=== PATIENT | female | born 1985 | race Caucasian/White ===

== ENCOUNTER 2018-04-14 21:44 | Emergency (ER) | payer MEDICAID ==
[~2018-04-14] VITALS: Ht 165.1 cm; Wt 97.6 kg
[2018-04-14 21:50] VITALS: BP 111/62
--- NOTE | 2018-04-14 22:00 | NUR ---
TO ER BED 5
[2018-04-14] MEDS ORDERED: ACETAMINOPHEN EXTRA STRENGTH 500 MG TAB PO ONE (22:05)
[2018-04-14] MEDS ORDERED: LIDOCAINE VISCOUS 2% 20 ML UDC PO ONE (22:05)
--- NOTE | 2018-04-14 22:09 | NUR ---
L&D NURSE AT BEDSIDE PERFORMING HEART TONES
--- NOTE | 2018-04-14 22:09 | NUR ---
PT BIB FAMILY C/O PAIN IN THROAT STARTING TODAY. PT STATED SHE HAS SEVERE 8/10 SORE PAIN IN THROAT THAT INCREASES WITH SWALLOWING AND TALKING. PT STATED SHE FEELS SOB, HAS DIFFICULTY TALKING AND HAS MUFFLED VOICE. RR SYMMETRICAL AND NON-LABORED, O2 SAT. AT 100 PERCENT ON RA. PT 20 WEEKS , . ER MD TO SEE PT. WILL CONTINUE TO MONITOR. MEDHX: NONE
--- NOTE | 2018-04-14 22:15 | NUR ---
PER L&D NURSE HEART TONE AT 150, ER INFORMED.
[2018-04-14 23:15] VITALS: BP 112/63
--- NOTE | 2018-04-14 23:15 | NUR ---
Patient discharged with v/s stable. Written and verbal after care instructions given and explained. Patient alert, oriented and verbalized understanding of instructions. Ambulatory with steady gait. All questions addressed prior to discharge. ID band removed. Patient advised to follow up with PMD. Rx of CLARITIN, TYLENOL, AND TAMIFLU given. Patient educated on indication of medication including possible reaction and side effects. Opportunity to ask questions provided and answered.
== END 2018-04-14 23:15 | disposition home or self-care (01) ==
LOC: MED 21:44
DX: O98.512 Other viral diseases complicating pregnancy, second trimester (principal); J10.1 Influenza due to other identified influenza virus with other respiratory manifestations; Z3A.20 20 weeks gestation of pregnancy
CPT/HCPCS: 36415; 87804; 99283

== ENCOUNTER 2019-11-11 22:56 | Emergency (ER) | payer MEDICAID, OTHER ==
[~2019-11-11] VITALS: Ht 165.1 cm; Wt 107.5 kg
[2019-11-11 23:01] VITALS: BP 125/78
--- NOTE | 2019-11-11 23:07 | NUR ---
PT AMBULATED TO BED 04 WITH STEADY GAIT.
--- NOTE | 2019-11-11 23:15 | NUR ---
33 Y/O FEMALE PRESENTS TO ER WITH C/O BILATERAL HAND TINGLING, AND RIGHT LOWER LEG TINGLING X 2 DAYS. 0/10 PAIN. PT HAS ROM IN BILATERAL HAND, AND RIGHT LEG. RADIAL, AND ULNAR, AND DORSALIS PEDIS PULSES BOTH PALPABLE AND REGULAR. PT STATES SHE WENT TO [place] AND HAD GASTRIC SLEEVE PLACED 10/28/19, AND SINCE HAS BEEN CONSTIPATED, AND UNABLE TO DRINK WATER REGURLARLY LIKE NORMAL. SHE ALSO C/O DIZZINESS, AND SURGICAL SITE BEGINNING TO LOOK INFECTED. DENIES INJURY/TRAUMA, N/V/D, FEVER, SOB. LMP 11/02/19. VSS, R/R EQUAL, AND UNLABORED. SIDE RAIL X1, BED IN LOW POSITION, WILL CONTINUE TO MONITOR. NKDA DENIES PMH
--- NOTE | 2019-11-11 23:16 | NUR ---
Dr. Pate examining patient.
[2019-11-11] MEDS ORDERED: NACL 0.9% 1,000 ML IV ONE (23:25)
[2019-11-11 23:47] LABS: HEMOGLOBIN 13.5 g/dL (12.0-16.0); MEAN CORPUSCULAR HEMOGLOBIN 30 pg (27-31); PLATELET COUNT (AUTO) 291 K/uL (140-450)
[2019-11-11 23:52] LABS: ALBUMIN 4.2 g/dL (3.4-5.0); ANION GAP 17.6 (8-16); BASOPHILS # (AUTO) 0.1 K/uL (0.00-0.22); BASOPHILS % (AUTO) 1.1 % (0.0-2.0); CARBON DIOXIDE 24.1 mmol/L (21-32); CREATININE 0.7 mg/dL (0.6-1.3); EOSINOPHILS # (AUTO) 0.2 K/uL (0-0.4); HEMATOCRIT 39.9 % (36-48); LYMPHOCYTES # (AUTO) 2.5 K/uL (2.5-16.5); LYMPHOCYTES % (AUTO) 34.4 % (20.5-51.1); MEAN CORPUSCULAR HGB CONC 34 g/dL (33-37); MEAN CORPUSCULAR VOLUME 87.7 fL (80-94); MONOCYTES # (AUTO) 0.6 K/uL (0.8-1.0); NEUTROPHILS # (AUTO) 3.8 K/uL (1.8-7.7); NEUTROPHILS % (AUTO) 52.5 % (42.2-75.2); RED BLOOD CELL COUNT(AUTO) 4.55 MIL/uL (4.20-5.40); TOTAL BILIRUBIN 0.4 mg/dL (0.0-1.0); WHITE BLOOD COUNT (AUTO) 7.1 K/uL (4.8-10.8)
[2019-11-11 23:55] LABS: POTASSIUM 2.7 mmol/L (3.5-5.1)
--- NOTE | 2019-11-11 23:57 | NUR ---
CRITICAL LAB VALUE REPORTED BY TANNER. POTASSIUM 2.7. ERMD MADE AWARE. NEW ORDERS GIVEN.
[2019-11-12] MEDS ORDERED: KCL 20 MEQ/WATER INJ PREMIX 100 ML IV ONE
[2019-11-12] MEDS ORDERED: POTASSIUM CHLORIDE 10 MEQ TABER PO ONE
--- NOTE | 2019-11-12 00:31 | NUR ---
POTASSIUM 20MEQ INFUSING, PT TOLERATING WELL. VSS, R/R EQUAL, AND UNLABORED. SIDE RAIL X1, WILL CONTINUE TO MONITOR.
[2019-11-12] MEDS ORDERED: NACL 0.9% 1,000 ML IV ONE (01:20)
--- NOTE | 2019-11-12 01:36 | NUR ---
PT RESTING IN BED. POTASSIUM STILL INFUSING, PT TOLERATING WELL. SIDE RAIL X1, BED IN LOW POSITION, WILL CONTINUE TO MONITOR. NKDA PMH: HIV
--- NOTE | 2019-11-12 02:21 | NUR ---
IV removed, catheter intact and site benign. Applied folded 4x4 gauze and tape to stop bleeding.
[2019-11-12 02:30] VITALS: BP 112/80
--- NOTE | 2019-11-12 02:30 | NUR ---
Patient discharged with v/s stable. Written and verbal after care instructions given and explained. Patient alert, oriented and verbalized understanding of instructions. Ambulatory with steady gait. All questions addressed prior to discharge. ID band removed. Patient advised to follow up with PMD. Rx of POTASSIUM CHLORIDE given. Patient educated on indication of medication including possible reaction and side effects. Opportunity to ask questions provided and answered.
== END 2019-11-12 02:30 | disposition home or self-care (01) ==
LOC: MED 22:56
DX: E87.6 Hypokalemia (principal); E86.0 Dehydration; R20.2 Paresthesia of skin
CPT/HCPCS: 36415; 80053; 83735; 85025; 96361; 96365; 96366; 99284; J3480; J7030

== ENCOUNTER 2020-08-09 10:11 | Emergency (ER) | payer OTHER ==
[~2020-08-09] VITALS: Ht 165.1 cm; Wt 81.6 kg
[2020-08-09 10:16] VITALS: BP 109/67
[2020-08-09] MEDS ORDERED: ACETAMINOPHEN 325 MG TAB PO ONE (10:25)
[2020-08-09] MEDS ORDERED: METH-1681 PO ×2 (11:25→11:55)
[2020-08-09 11:45] VITALS: BP 109/67
[2020-08-09 14:33] LABS: APPEARANCE,URINE CLEAR (CLEAR); BILIRUBIN,URINE 1+ (NEGATIVE); BLOOD, URINE NEGATIVE (NEGATIVE); COLOR,URINE DARK YELLOW (YELLOW); LEUKOCYTE ESTERASE ,URINE NEGATIVE (NEGATIVE); NITRITE, URINE NEGATIVE (NEGATIVE); PH,URINE 5.5 (5.0-9.0); UGLUCOSE NEGATIVE (NEGATIVE)
== END 2020-08-09 11:45 | disposition home or self-care (01) ==
LOC: MED 10:11
DX: R10.31 Right lower quadrant pain (principal); Z79.899 Other long term (current) drug therapy; Z98.890 Other specified postprocedural states
CPT/HCPCS: 76856; 81003; 81025; 99285

== ENCOUNTER 2020-08-28 12:27 | Inpatient (IN) | payer OTHER, SELFPAY ==
[~2020-08-28] VITALS: Ht 165.1 cm; Wt 80.7 kg
--- NOTE | 2020-08-28 07:50 | NUR ---
RECEIVED REPORT OVER THE PHONE FROM RAMONITA SAM IN ER, PT IN STABLE CONDITION.
[~2020-08-28 12:27] MED LIST: METH-1681 PO
[2020-08-28 12:47] VITALS: BP 99/68
--- NOTE | 2020-08-28 12:51 | NUR ---
PT TO AWAIT IN LOBBY
--- NOTE | 2020-08-28 13:39 | NUR ---
PA BEDSIDE EVALUATING PT
--- NOTE | 2020-08-28 13:50 | NUR ---
US BEDSIDE WITH PT
--- NOTE | 2020-08-28 13:51 | NUR ---
PT PROVIDED URINE CUP. PT UNABLE TO URINATE AT THE TIME, WATER PROVIDED. MADE AWARE
--- NOTE | 2020-08-28 13:59 | NUR ---
34 FEMALE WITH C/O RT RIB PAIN X1 WEEK. PT STATES INTERMITTENT 8/10 PAIN RADAITING TO BACK. TENDER TO TOUCH. "FEELS LIKE MY RIB IS SWELLING" WITH NAUSEA. DENIES ANY RECENT TRAUMA OR INJURY. PT STATES SHE EXPERINCES "RANDOME FLARE UPS WHICH CAUSE FOR THE PAIN." DENIES THAT ANY MOVEMENTS CAUSE FOR THE FLARE UPS. PT "STATES SHE DRINKS 3 COFFEES A DAY AND IS TRYING TO CUT DOWN ON HER COFFEE INTAKE" MEDHX: GASTRIC SLEEVE (2019) NKA
--- NOTE | 2020-08-28 14:32 | NUR ---
Pt resting, resting visble equal rise and fall of chest, VSS, will continue to monitor.
--- NOTE | 2020-08-28 14:32 | NUR ---
Jeet flores in [facility] - 08/28/20 at 1633 by [email or web address] Pt resting, [place]
[2020-08-28 14:58] LABS: BASOPHILS % (AUTO) 0.7 % (0.0-2.0); EOSINOPHILS # (AUTO) 0.1 K/uL (0-0.4); EOSINOPHILS % (AUTO) 1.2 % (0.0-4.0); HEMATOCRIT 37.8 % (36-48); HEMOGLOBIN 12.4 g/dL (12.0-16.0); LYMPHOCYTES # (AUTO) 1.9 K/uL (2.5-16.5); LYMPHOCYTES % (AUTO) 32.8 % (20.5-51.1); MEAN CORPUSCULAR HEMOGLOBIN 31 pg (27-31); MEAN CORPUSCULAR HGB CONC 33 g/dL (33-37); MEAN CORPUSCULAR VOLUME 95.1 fL (80-94); MONOCYTES # (AUTO) 0.5 K/uL (0.8-1.0); NEUTROPHILS # (AUTO) 3.4 K/uL (1.8-7.7); NEUTROPHILS % (AUTO) 57.3 % (42.2-75.2); PLATELET COUNT (AUTO) 218 K/uL (140-450); RED BLOOD CELL COUNT(AUTO) 3.98 MIL/uL (4.20-5.40); RED CELL DISTRIBUTION WIDTH 13.3 % (11.6-13.7); WHITE BLOOD COUNT (AUTO) 5.9 K/uL (4.8-10.8)
[2020-08-28 15:13] LABS: ALBUMIN 3.9 g/dL (3.4-5.0); ANION GAP 11.2 (8-16); CREATININE 0.6 mg/dL (0.6-1.3); POTASSIUM 4.2 mmol/L (3.5-5.1); TOTAL BILIRUBIN 0.5 mg/dL (0.0-1.0)
--- NOTE | 2020-08-28 16:28 | NUR ---
NIKOS Zhang at pt bedside for re-evaluation.
--- NOTE | 2020-08-28 16:59 | NUR ---
JENARO DILL WALKED OVER TO LAB BY SUPA SAM
--- NOTE | 2020-08-28 17:12 | NUR ---
SPOKE TO MD SHETTY. ADMIT ORDER HAS BEEN PLACED INTO SYSTEM
--- NOTE | 2020-08-28 18:09 | NUR ---
PT SITTING IN BED COMFROTABLE ON PHONE. VITALS STABLE. WILL CONTUINE TO MONITOR
--- NOTE | 2020-08-28 18:30 | NUR ---
UPDATED BELONGINGS LIST. VITALS TAKEN AND STABLE. PT BEDSIDE WITH FIANCE. WILL CONTUINE TO MONITOR
--- NOTE | 2020-08-28 18:31 | NUR ---
PT HAETHER BEDSIDE, NAME HEIDI
[2020-08-28] MEDS ORDERED: MAGNESIUM OXIDE 400 MG TAB PO PRN (18:40)
[2020-08-28] MEDS ORDERED: ACETAMINOPHEN 325 MG TAB PO PRN (18:40)
[2020-08-28] MEDS ORDERED: POTASSIUM CHLORIDE 10 MEQ TABER PO PRN (18:40)
[2020-08-28] MEDS ORDERED: KCL 20 MEQ/WATER INJ PREMIX 200 ML IV PRN (18:40)
[2020-08-28] MEDS ORDERED: MAG SULF 2000 MG/WATER PREMIX 50 ML IV PRN (18:40)
--- NOTE | 2020-08-28 19:21 | NUR ---
[facility] GIV[facility] TO [facility]. TRANSFER OF CARE GIVEN
--- NOTE | 2020-08-28 19:45 | NUR ---
DR. SALAZAR AT BEDSIDE
[2020-08-28] MEDS: NACL 0.9% 1,000 ML IV SCH (19:47)
--- NOTE | 2020-08-28 19:47 | NUR ---
CALLED REPORT TO FLACO MCFARLANE (MED SURG). Patient will be admitted to care of DR. MARIE. Admited to MED SURG. Will go to room 120A. Belongings list completed. Report to FLACO MCFARLANE.
--- NOTE | 2020-08-28 19:50 | NUR ---
PT. TRANSFERED TO MED SURG UNIT VIA W/C, ACCOMPANIED BY EUGENIA MURILLO
--- NOTE | 2020-08-28 20:10 | NUR ---
PT BROUGHT UP BY W/C TO ROOM 120, PT AMBULATED INDEPENDENTLY TO BED A. SHE IS AOX4 SWEDISH SPEAKING SKIN INTACT WITH 20G ON RIGHT AC INTACT AND RUNNING NORMAL SALINE AT 80MLS/HR. V/S IN NORMAL LIMITS SHE HAS NO C/O OF PAIN AND DIET IS NPO DUE TO POSSIBLE SURGERY TOMORROW.
[2020-08-28 20:30] VITALS: BP 108/70
--- NOTE | 2020-08-28 21:00 | NUR ---
MD SALAZAR HAD CONSULT AT BEDSIDE REGARDING PT LAP CHOLEY. PT ABLE TO ASK QUESTIONS AND SURGEON ANSWERED CONCERNS, PT SIGNED CONSENT.
--- NOTE | 2020-08-29 | NUR ---
ROUNDS DONE , PT IN BED ASLEEP NO C/O VOICED. PT REMINDED THAT SHE IS NPO DUE TO SURGERY. PT VERBALIZED UNDERSTANDING. NS RUNNING ORDERED ALL UNIVERSAL FALLS PRECAUTIONS IN PLACE.
--- NOTE | 2020-08-29 05:45 | NUR ---
PT IN BED RESTING, AWAKEN TO LIGHT TOUCH V/S FOLLOWS: T 98.1 P 63 R 18 B/P 99/57 02 98% ON ROOM AIR. ALL UNIVERSAL FALLS PRECAUTIONS IN PLACE.
[2020-08-29 06:10] LABS: BASOPHILS % (AUTO) 0.6 % (0.0-2.0); EOSINOPHILS # (AUTO) 0.1 K/uL (0-0.4); HEMATOCRIT 34.3 % (36-48); HEMOGLOBIN 11.4 g/dL (12.0-16.0); LYMPHOCYTES # (AUTO) 2.7 K/uL (2.5-16.5); LYMPHOCYTES % (AUTO) 56.1 % (20.5-51.1); MEAN CORPUSCULAR HEMOGLOBIN 32 pg (27-31); MEAN CORPUSCULAR HGB CONC 33 g/dL (33-37); MEAN CORPUSCULAR VOLUME 94.3 fL (80-94); MONOCYTES # (AUTO) 0.3 K/uL (0.8-1.0); MONOCYTES % (AUTO) 6.4 % (1.7-9.3); NEUTROPHILS # (AUTO) 1.7 K/uL (1.8-7.7); NEUTROPHILS % (AUTO) 34.9 % (42.2-75.2); PLATELET COUNT (AUTO) 199 K/uL (140-450); RED BLOOD CELL COUNT(AUTO) 3.64 MIL/uL (4.20-5.40); RED CELL DISTRIBUTION WIDTH 13.3 % (11.6-13.7); WHITE BLOOD COUNT (AUTO) 4.8 K/uL (4.8-10.8)
[2020-08-29 06:20] LABS: ALBUMIN 3.1 g/dL (3.4-5.0); ANION GAP 15.4 (8-16); CARBON DIOXIDE 25.5 mmol/L (21-32); CREATININE 0.7 mg/dL (0.6-1.3); MAGNESIUM 1.9 mg/dL (1.8-2.4); POTASSIUM 3.9 mmol/L (3.5-5.1); TOTAL BILIRUBIN 0.5 mg/dL (0.0-1.0)
--- NOTE | 2020-08-29 07:19 | NUR ---
ENDORSED PATIENT TO DIGITAL TECH RN FOR CONTINUITY OF CARE. PATIENT IN STABLE CONDITION. Addendum: 08/29/20 at 2015 by Cristel Schaeffer RN WRONG DOCUMENTATION.
--- NOTE | 2020-08-29 07:35 | NUR ---
RECEIVED REPORT FROM BATTERY FILLER RN FOR CONTINUITY OF CARE. PATIENT RESTING IN BED IN SITTING POSITION. IV TO RIGHT AC INFUSING IVF NS@ 100ML/HR. PATIENT DENIES PAIN AT THIS TIME, SKIN WARM AND DRY. PENDING LAP CHOLECYSTECTOMY TODAY. CONSENT SIGNED PER BATTERY FILLER RN. PLAN OF CARE DISCUSSED, SAFETY MEASURES IN PLACE, WILL CONTINUE TO MONITOR.
[2020-08-29 08:00] VITALS: BP 96/57
[2020-08-29] MEDS: NACL 0.9% 1,000 ML IV SCH ×2 (08:48→21:15)
--- NOTE | 2020-08-29 09:20 | NUR ---
PATIENT HAS BEEN SCREENED AND CATEGORIZED LOW NUTRITION RISK. PATIENT WILL BE SEEN WITHIN 7 DAYS OF ADMISSION. 09/04/[address]
[2020-08-29] MEDS ORDERED: fentaNYL citrate 0.05 MG/ML VIAL ONE (09:29)
[2020-08-29] MEDS ORDERED: MEPERIDINE 25 MG/ML SYR ONE (09:30)
--- NOTE | 2020-08-29 09:50 | NUR ---
PATIENT PICKED UP BY THE OR NURSE TO HAVE PROCEDURE LAP CHOLECYSTECTOMY BY DR. SALAZAR. WILL FOLLOW UP.
[2020-08-29] MEDS ORDERED: BUPIVACAINE-MPF/EPI 0.25% 30 ML VIAL INJ ONE (10:10)
[2020-08-29] MEDS ORDERED: LIDOCAINE 1% 500 MG/50 ML VIAL ONE (10:10)
[2020-08-29] MEDS ORDERED: SEVOFLURANE 250 ML BTL INH ONE (10:16)
[2020-08-29] MEDS ORDERED: diphenhydrAMINE 50 MG/ML VIAL IVP PRN (10:55)
[2020-08-29] MEDS ORDERED: ONDANSETRON 4 MG/2 ML VIAL IVP PRN (10:55)
[2020-08-29] MEDS ORDERED: fentaNYL citrate 0.05 MG/ML VIAL IVP PRN (10:55)
[2020-08-29] MEDS ORDERED: MEPERIDINE 25 MG/ML SYR IVP PRN (10:55)
[2020-08-29] MEDS ORDERED: PROPOFOL 200 MG/20 ML VIAL IV ONE (11:03)
[2020-08-29] MEDS ORDERED: LIDOCAINE MPF 2% 100 MG/5 ML VIAL INJ ONE (11:03)
[2020-08-29] MEDS ORDERED: SUCCINYLCHOLINE CHLORIDE 200 MG/10 ML VIAL IVP ONE (11:04)
[2020-08-29] MEDS ORDERED: GLYCOPYRROLATE 0.2 MG/ML VIAL ONE (11:04)
[2020-08-29] MEDS ORDERED: ROCURONIUM 50 MG/5 ML VIAL IV ONE (11:04)
[2020-08-29] MEDS ORDERED: NEOSTIGMINE 1:1000 10 MG/10 ML VIAL ONE (11:04)
[2020-08-29] MEDS ORDERED: ceFAZolin 1,000 MG VIAL ONE (11:05)
[2020-08-29] MEDS ORDERED: ONDANSETRON 4 MG/2 ML VIAL ONE (11:05)
[2020-08-29] MEDS: fentaNYL citrate 0.05 MG/ML VIAL IVP PRN ×4 (12:15→12:45)
[2020-08-29] MEDS ORDERED: HYDROmorphone 1 MG/ML AMP IVP PRN (12:40)
--- NOTE | 2020-08-29 13:25 | NUR ---
PATIENT BACK FROM OR S/P LAP WOLFGANG WITH 5 INCISION AT ABD, V/S CHECKED IN STABLE CONDITION
[2020-08-29] MEDS: MORPHINE SULFATE 4 MG/ML SYR IVP PRN (13:26)
[2020-08-29] MEDS: HYDROcodone/APAP 5/325 MG 1 TAB TAB PO PRN ×2 (15:56→20:10)
--- NOTE | 2020-08-29 15:56 | NUR ---
NORCO GIVEN FOR ABD SURGICAL SITE PAIN 08/01, EDUCATION PROVIDED, PATIENT WAS ABLE TO AMBULATE IN THE HALLWAY. SAFETY MEASURES IN PLACE, FAMILY AT BEDSIDE. WILL CONTINUE TO MONITOR.
[2020-08-29 16:00] VITALS: BP 105/67
[2020-08-29] MEDS: LACTATED RINGERS 1,000 ML IV SCH ×2 (19:15→19:22)
--- NOTE | 2020-08-29 19:19 | NUR ---
ENDORSED PATIENT TO INSOLE DOUBLER RN FOR CONTINUITY OF CARE. PATIENT IN STABLE CONDITION.
--- NOTE | 2020-08-29 19:20 | NUR ---
RECEIVED BEDSIDE REPORT FROM DAY RN. PT IS AAOX4. AMBULATORY ABLE TO MAKE NEEDS KNOWN. RESPIRATIONS ARE EQUAL AND UNLABORED ON ROOM AIR. LUNG SOUNDS ARE CLEAR. PT IS S/P LAP WOLFGANG WITH 5 SURGICAL INCISIONS CLOSED WITH DERMA DAY AND STERI STRIP NO DRAINAGE NOTED. IV ON RAC 20 G NS INFUSING AT 80ML/H DENIES PAIN AT THIS TIME. POC DISCUSSED WITH PT. CALL LIGHT IS WITHIN REACH
[2020-08-29 20:00] VITALS: BP 99/59
--- NOTE | 2020-08-29 20:10 | NUR ---
ADMIN PRN NORCO. VSS. INSTRUCTED PATIENT ON USING IS PT TOLERATED WELL. ALL NEEDS MET. CALL LIGHT IS WITHIN REACH.
--- NOTE | 2020-08-29 22:01 | NUR ---
ROUNDS MADE. PT OBSERVED IN BED WITH EYES CLOSED APPEARS TO BE ASLEEP. CHEST RISE AND FALL NOTED. WILL CONTINUE TO MONITOR.
--- NOTE | 2020-08-29 22:20 | NUR ---
GAVE REPORT TO MISSILE FACILITIES REPAIRER FAIRY. PT ENDORSED IN STABLE CONDITION.
--- NOTE | 2020-08-29 22:35 | NUR ---
RECEIVED REPORT OF PT IN STABLE CONDITION.IVF INFUSING WELL.CALL LIGHT IN REACH.NO C/O PAIN OR DISCOMFORT.WILL CONT.MONITORING.
[2020-08-30] MEDS: HYDROcodone/APAP 5/325 MG 1 TAB TAB PO PRN ×3 (00:27→20:53)
--- NOTE | 2020-08-30 00:59 | NUR ---
HAD C/O PAIN NORCO PO GIVEN.SLEEPING AT THIS TIME.
[2020-08-30] MEDS: MORPHINE SULFATE 4 MG/ML SYR IVP PRN (02:13)
[2020-08-30] MEDS: NACL 0.9% 1,000 ML IV SCH ×2 (02:25→14:02)
[2020-08-30] MEDS: LACTATED RINGERS 1,000 ML IV SCH ×5 (03:35→23:55)
[2020-08-30 06:12] LABS: BASOPHILS % (AUTO) 0.3 % (0.0-2.0); EOSINOPHILS # (AUTO) 0.1 K/uL (0-0.4); EOSINOPHILS % (AUTO) 1.7 % (0.0-4.0); HEMATOCRIT 33.7 % (36-48); HEMOGLOBIN 11.4 g/dL (12.0-16.0); LYMPHOCYTES # (AUTO) 1.7 K/uL (2.5-16.5); LYMPHOCYTES % (AUTO) 31.5 % (20.5-51.1); MEAN CORPUSCULAR HEMOGLOBIN 32 pg (27-31); MEAN CORPUSCULAR HGB CONC 34 g/dL (33-37); MEAN CORPUSCULAR VOLUME 95.3 fL (80-94); MONOCYTES # (AUTO) 0.4 K/uL (0.8-1.0); MONOCYTES % (AUTO) 8.1 % (1.7-9.3); NEUTROPHILS # (AUTO) 3.2 K/uL (1.8-7.7); NEUTROPHILS % (AUTO) 58.4 % (42.2-75.2); PLATELET COUNT (AUTO) 196 K/uL (140-450); RED BLOOD CELL COUNT(AUTO) 3.54 MIL/uL (4.20-5.40); RED CELL DISTRIBUTION WIDTH 13.3 % (11.6-13.7); WHITE BLOOD COUNT (AUTO) 5.5 K/uL (4.8-10.8)
--- NOTE | 2020-08-30 06:48 | NUR ---
AFTER MORPHINE GIVEN FOR GRAZYNA SHE SLEPT WELL.NPO FOR ERCP.SHE IS NOT IN OR LIST SO I COULDN'T DO PRE-OP CHECK LIST.PT'S CONDITION IS STABLE.
[2020-08-30 06:50] LABS: ANION GAP 10.2 (8-16); CARBON DIOXIDE 28.8 mmol/L (21-32); CREATININE 0.6 mg/dL (0.6-1.3); MAGNESIUM 1.9 mg/dL (1.8-2.4); TOTAL BILIRUBIN 0.7 mg/dL (0.0-1.0)
--- NOTE | 2020-08-30 07:10 | NUR ---
RECEIVED BEDSIDE REPORT FROM DENTAL LABORATORY ASSISTANT NURSE. PATIENT IS ASLEEP, RESPIRATION EVEN UNLABORED ON ROOM AIR. NO DISTRESS NOTED. SKIN IS WARM AND DRY. IV PATENT AND INTACT. PLAN OF CARE DISCUSSED, ALL SAFETY MEASURE IN PLACE. BED IS AT LOW POSITION. CALL LIGHT WITHIN REACH, WILL CONTINUE TO MONITOR.
[2020-08-30 08:00] VITALS: BP 91/54
--- NOTE | 2020-08-30 10:57 | NUR ---
PATIENT COMPLAINED OF ABD PAIN 6/10, PRN PAIN MEDS GIVEN PER ORDER. WILL CONTINUE TO MONITOR
--- NOTE | 2020-08-30 12:00 | NUR ---
CHECKED ON PATIENT, PATIENT IS AWAKE WATCHING TV, AWAITING FOR HER SURGERY.
--- NOTE | 2020-08-30 14:08 | NUR ---
PATIENT LEFT THE UNIT FOR SURGERY
[2020-08-30] MEDS ORDERED: fentaNYL citrate 0.05 MG/ML VIAL ONE ×2 (14:38→15:30)
[2020-08-30] MEDS ORDERED: MIDAZOLAM 2 MG/2 ML VIAL ONE ×2 (14:38→15:30)
[2020-08-30] MEDS ORDERED: PROPOFOL 200 MG/20 ML VIAL IV ONE ×3 (15:19→15:30)
[2020-08-30] MEDS ORDERED: diphenhydrAMINE 50 MG/ML VIAL IVP PRN (15:35)
[2020-08-30] MEDS ORDERED: MEPERIDINE 25 MG/ML SYR IVP PRN (15:35)
[2020-08-30] MEDS ORDERED: ONDANSETRON 4 MG/2 ML VIAL IVP PRN (15:35)
[2020-08-30] MEDS ORDERED: HYDROmorphone 1 MG/ML AMP IVP PRN (15:35)
[2020-08-30 16:00] VITALS: BP 119/75
--- NOTE | 2020-08-30 16:00 | NUR ---
PATIENT IS BACK FROM SURGERY. VITALS WERE TAKEN. WILL CONTINUE TO MONITOR
--- NOTE | 2020-08-30 16:08 | NUR ---
DC PLANNING: SPOKE WITH PATIENT AT BEDSIDE. STATES SHE LIVES IN A SECOND FLOOR APARTMENT WITH HER 2 CHILDREN AGES 2 AND 15. STATES HER SISTER PROVIDES ASSISTANCE WHILE SHE'S IN THE HOSPITAL, NO SELF CARE DEFICITS. PATIENT SEES HER PCP ABOUT EVERY SIX MONTHS. INDEPENDENT IN DAILY ACTIVITIES, NO DC NEEDS IDENTIFIED. CM WILL CONTINUE TO FOLLOW FOR NEEDS. Addendum: 08/30/20 at 1632 by Mckayla Walters RN DC PLANNING: F/U APPOINTMENT SCHEDULED WITH PCP DR DAVALOS ADDRESS [address] [place] [address], [id number] APPOINTMENT REMINDER GIVEN TO PATIENT. Addendum: 08/30/20 at 1633 by Mckayla Walters RN WRONG PATIENT Addendum: 08/30/20 at 1636 by Mckayla Walters RN DC PLANNING: F/U APPOINTMENT SCHEDULED WITH PCP DR VALERIE THOMAS ADDRESS [id number] [facility] [id number] . APPOINTMENT REMINDER GIVEN TO PATIENT.
[2020-08-30] MEDS ORDERED: SIMETHICONE 80 MG TAB.CHEW PO PRN (17:00)
--- NOTE | 2020-08-30 17:00 | NUR ---
HELPED PATIENT AMBULATE TO THE BATHROOM, PT TOLERATED IT WELL
--- NOTE | 2020-08-30 17:20 | NUR ---
PATIENT COMPLAINED OF FEELING BLOATED, EXPLAINED THAT ITS EXPECTED AFTER SURGERY, PATIENT INSIST FOR ANTI-GAS MEDICATION. NOTIFY MD, PER MD ADMINISTER SIMETHICONE 80MG PO. WILL CONTINUE TO MONITOR
--- NOTE | 2020-08-30 18:00 | NUR ---
GAVE PATIENT HER APPOINTMENT SLIP TO FOLLOW UP WITH HER PCP
--- NOTE | 2020-08-30 19:29 | NUR ---
ENDORSED PATIENT TO HEART NURSE NURSE FOR CONTINUITY OF CARE
--- NOTE | 2020-08-30 19:30 | NUR ---
RECEIVED REPORT FROM KEN SAM DAYSHIFT AT BEDSIDE FOR CONTINUITY OF CARE, PT IN STABLE CONDITION.
--- NOTE | 2020-08-30 20:00 | NUR ---
PT SITTING UP IN BED SHE IS AOX4 ON ROOM AIR WITH RAC 20G INTACT AND RUNNING NORMAL SALINE AT 80MLS/HR. SHE HAS 5 INCISIONS DRY AND INTACT COVERED WITH STERI STRIPS NO DRAINAGE NOTED. NO C/O VOICED AT THIS TIME V/S FOLLOWS: T 98.0 P 56 R 18 B/P 104/62 02 97% ON ROOM AIR. ALL UNIVERSAL FALLS PRECAUTIONS IN PLACE.
--- NOTE | 2020-08-30 21:00 | NUR ---
PT C/O OF MODERATE 5/10 PAIN AND WAS GIVEN PO NOCO 5/325MG, WILL MONITOR FOR PAIN REIELF.
[2020-08-31] VITALS: BP 110/70
[2020-08-31] MEDS: HYDROcodone/APAP 5/325 MG 1 TAB TAB PO PRN ×3 (01:13→10:41)
--- NOTE | 2020-08-31 02:00 | NUR ---
PT C/O MODERATE PAIN , SHE WAS GIVEN NORCO PO/PRN WILL MONITOR FOR PAIN RELIEF.
[2020-08-31 04:00] VITALS: BP 96/62
[2020-08-31] MEDS: LACTATED RINGERS 1,000 ML IV SCH ×2 (04:35→08:15)
[2020-08-31 07:29] LABS: BASOPHILS % (AUTO) 0.4 % (0.0-2.0); EOSINOPHILS # (AUTO) 0.2 K/uL (0-0.4); EOSINOPHILS % (AUTO) 4.7 % (0.0-4.0); HEMATOCRIT 32.7 % (36-48); LYMPHOCYTES # (AUTO) 1.8 K/uL (2.5-16.5); LYMPHOCYTES % (AUTO) 44.7 % (20.5-51.1); MEAN CORPUSCULAR HEMOGLOBIN 32 pg (27-31); MEAN CORPUSCULAR HGB CONC 34 g/dL (33-37); MEAN CORPUSCULAR VOLUME 93.9 fL (80-94); MONOCYTES # (AUTO) 0.4 K/uL (0.8-1.0); MONOCYTES % (AUTO) 9.9 % (1.7-9.3); NEUTROPHILS # (AUTO) 1.6 K/uL (1.8-7.7); NEUTROPHILS % (AUTO) 40.3 % (42.2-75.2); PLATELET COUNT (AUTO) 177 K/uL (140-450); RED BLOOD CELL COUNT(AUTO) 3.48 MIL/uL (4.20-5.40)
--- NOTE | 2020-08-31 07:30 | NUR ---
RECEIVED BEDSIDE REPORT FROM TIMBER CUTTER NURSE. PATIENT IS ASLEEP, RESPIRATION EVEN UNLABORED ON ROOM AIR. NO DISTRESS NOTED. SKIN IS WARM AND DRY. IV PATENT AND INTACT. PLAN OF CARE DISCUSSED, ALL SAFETY MEASURE IN PLACE. BED IS AT LOW POSITION. CALL LIGHT WITHIN REACH, WILL CONTINUE TO MONITOR.
[2020-08-31 07:34] LABS: ALBUMIN 3.2 g/dL (3.4-5.0); ANION GAP 7.6 (8-16); CREATININE 0.5 mg/dL (0.6-1.3); POTASSIUM 3.6 mmol/L (3.5-5.1); TOTAL BILIRUBIN 0.6 mg/dL (0.0-1.0)
[2020-08-31 08:00] VITALS: BP 90/56
[2020-08-31] MEDS: NACL 0.9% 1,000 ML IV SCH (08:35)
--- NOTE | 2020-08-31 09:00 | NUR ---
NO SCHEDULED MEDICATIONS WERE GIVEN. PT IS STABLE AND DENIES PAIN AT THE MOMENT. WILL CONTINUE TO MONITOR.
--- NOTE | 2020-08-31 10:08 | NUR ---
PT REQUESTED MULTIVITAMIN BECAUSE SHE TAKES IT DAILY AND SHE'S BARIATRIC. NOTIFIED MD AND IS AWARE. NEW ORDERS WERE PLACED.
[2020-08-31] MEDS ORDERED: MULTIVITAMIN 1 TAB PO SCH (10:20)
--- NOTE | 2020-08-31 10:41 | NUR ---
PT COMPLAINED OF ABDOMEN PAIN 5/10. ADMINISTERED PRN MEDICATION ORDERED.
[2020-08-31] MEDS ORDERED: ACET-9525 PO (11:48)
--- NOTE | 2020-08-31 12:15 | NUR ---
CHECKED ON PATIENT. PT IS WATCHING TV. NO S/S OF DISTRESS NOTED. WILL CONTINUE TO MONITOR.
[2020-08-31 12:26] VITALS: BP 90/56
--- NOTE | 2020-08-31 13:00 | NUR ---
ENDORSED DISCHARGE INSTRUCTIONS TO PATIENT. PATIENT VERBALIZED UNDERSTANDING AND SIGNED THE DISCHARGE FORMS.
--- NOTE | 2020-08-31 13:43 | NUR ---
PATIENT DISCHARGED OFF THE UNIT. PATIENT PICKED UP BY IN PATIENT'S ROOM. PT WAS STABLE PRIOR TO DISCHARGE.
== END 2020-08-31 13:25 | disposition home or self-care (01) | DRG 263 ==
LOC: MED 12:27 → MMU 17:12 → MTU 17:49 → OBSVTOIN 08-30 12:02
PROVIDERS: ADMIT Internal Medicine; ATTEND Internal Medicine
PROC: BF522Z0 Other Imaging of Gallbladder using Fluorescing Agent, Intraoperative (ICD-10-PCS; 2020-08-29)
PROC: 0FT44ZZ Resection of Gallbladder, Percutaneous Endoscopic Approach (ICD-10-PCS; principal; 2020-08-29 08:35)
PROC: 0F798ZZ Dilation of Common Bile Duct, Via Natural or Artificial Opening Endoscopic (ICD-10-PCS; 2020-08-30)
PROC: BF101ZZ Fluoroscopy of Bile Ducts using Low Osmolar Contrast (ICD-10-PCS; 2020-08-30)
DX: K80.20 Calculus of gallbladder without cholecystitis without obstruction (principal); E66.3 Overweight; Z20.822 Contact with and (suspected) exposure to COVID-19; Z98.84 Bariatric surgery status; Z68.30 Body mass index [BMI] 30.0-30.9, adult; K82.8 Other specified diseases of gallbladder; R79.89 Other specified abnormal findings of blood chemistry
CPT/HCPCS: 99285; G0378; 36415; 74330; 76705; 80053; 82374; 82948; 83690; 83735; 85025; 86886; 86900; 86901; 87081; C1727; C1769; C1887; J0330; J0690; J2001; J2175; J2250; J2270; J2405; J2704; J2710; J3010; J3490; J7030; J7120; Q9967

== ENCOUNTER 2020-09-13 13:15 | Emergency (ER) | payer OTHER, SELFPAY ==
[~2020-09-13] VITALS: Ht 165.1 cm; Wt 83.0 kg
[~2020-09-13 13:15] MED LIST changes: +ACET-9525 PO; -METH-1681 PO
[2020-09-13 13:23] VITALS: BP 104/63
[2020-09-13] MEDS ORDERED: NACL 0.9% 1,000 ML IV SCH (13:45)
--- NOTE | 2020-09-13 14:22 | NUR ---
Patient returned from CT scan. RN reevaluating the patient at bedside.
--- NOTE | 2020-09-13 14:23 | NUR ---
34/F presents to ED with c/o abdominal pain. Patient states for 3 days has been having worsening right upper quadrant pain, tender to touch. Patient states had surgery two weeks ago at same site, states the pain is nonradiating, describes it as 7/10 sharp pain. Reports taking Leon two hours prior to arrival to ED with no improvement. Denies fever, chills, nausea or vomiting.
[2020-09-13 14:26] LABS: BASOPHILS # (AUTO) 0.1 K/uL (0.00-0.22); BASOPHILS % (AUTO) 1.9 % (0.0-2.0); EOSINOPHILS # (AUTO) 0.2 K/uL (0-0.4); EOSINOPHILS % (AUTO) 3.4 % (0.0-4.0); HEMATOCRIT 37.8 % (36-48); HEMOGLOBIN 12.6 g/dL (12.0-16.0); LYMPHOCYTES # (AUTO) 2.3 K/uL (2.5-16.5); LYMPHOCYTES % (AUTO) 40.9 % (20.5-51.1); MEAN CORPUSCULAR HEMOGLOBIN 32 pg (27-31); MEAN CORPUSCULAR HGB CONC 33 g/dL (33-37); MEAN CORPUSCULAR VOLUME 95.2 fL (80-94); MONOCYTES # (AUTO) 0.4 K/uL (0.8-1.0); MONOCYTES % (AUTO) 6.4 % (1.7-9.3); NEUTROPHILS # (AUTO) 2.6 K/uL (1.8-7.7); NEUTROPHILS % (AUTO) 47.4 % (42.2-75.2); PLATELET COUNT (AUTO) 260 K/uL (140-450); RED BLOOD CELL COUNT(AUTO) 3.98 MIL/uL (4.20-5.40); RED CELL DISTRIBUTION WIDTH 13.3 % (11.6-13.7); WHITE BLOOD COUNT (AUTO) 5.5 K/uL (4.8-10.8)
[2020-09-13 14:32] LABS: APPEARANCE,URINE SL CLOUDY (CLEAR); BILIRUBIN,URINE NEGATIVE (NEGATIVE); BLOOD, URINE NEGATIVE (NEGATIVE); LEUKOCYTE ESTERASE ,URINE 2+ (NEGATIVE); NITRITE, URINE NEGATIVE (NEGATIVE); UGLUCOSE NEGATIVE (NEGATIVE)
[2020-09-13 14:33] LABS: COLOR,URINE YELLOW (YELLOW)
[2020-09-13 14:45] LABS: ALBUMIN 3.8 g/dL (3.4-5.0); ANION GAP 11.4 (8-16); CARBON DIOXIDE 24.6 mmol/L (21-32); CREATININE 0.6 mg/dL (0.6-1.3); RBC,URINE NONE SEEN /HPF (0-5); TOTAL BILIRUBIN 0.3 mg/dL (0.0-1.0)
--- NOTE | 2020-09-13 14:54 | NUR ---
Dr. Cabrera is reevaluating the patient at bedside.
[2020-09-13] MEDS ORDERED: CIPR500T4 PO (15:37)
[2020-09-13 15:45] VITALS: BP 103/58
--- NOTE | 2020-09-13 15:46 | NUR ---
Patient discharged with v/s stable. Written and verbal after care instructions given and explained. Patient alert, oriented and verbalized understanding of instructions. Ambulatory with steady gait. All questions addressed prior to discharge. ID band removed. Patient advised to follow up with PMD. Rx of Ciprofloxacin given. Patient educated on indication of medication including possible reaction and side effects. Opportunity to ask questions provided and answered.
[2020-09-14] MEDS ORDERED: BEN50 PO (21:49)
[2020-09-14] MEDS ORDERED: CEPH-588 PO (21:49)
== END 2020-09-13 15:44 | disposition home or self-care (01) ==
LOC: MED 13:15
DX: N39.0 Urinary tract infection, site not specified (principal); R10.11 Right upper quadrant pain
CPT/HCPCS: 36415; 74176; 80053; 81001; 83690; 85025; 87086; 96360; 99285; J7030; 81025

== ENCOUNTER 2020-09-14 21:11 | Emergency (ER) | payer OTHER ==
[~2020-09-14] VITALS: Ht 165.1 cm; Wt 83.0 kg
[~2020-09-14 21:11] MED LIST changes: +CIPR500T4 PO
[2020-09-14 21:20] VITALS: BP 124/75
[2020-09-14] MEDS ORDERED: BEN50 PO (21:49)
[2020-09-14] MEDS ORDERED: CEPH-588 PO (21:49)
[2020-09-14] MEDS ORDERED: diphenhydrAMINE 50 MG CAP PO ONE (21:50)
[2020-09-14 22:04] VITALS: BP 124/75
== END 2020-09-14 22:04 | disposition home or self-care (01) ==
LOC: MED 21:11
DX: T78.40XA Allergy, unspecified, initial encounter (principal); Z88.1 Allergy status to other antibiotic agents; Z79.899 Other long term (current) drug therapy; X58.XXXA Exposure to other specified factors, initial encounter
CPT/HCPCS: 99283; Q0163

== ENCOUNTER 2020-09-17 06:40 | Emergency (ER) | payer OTHER ==
[~2020-09-17] VITALS: Ht 165.1 cm; Wt 83.0 kg
[~2020-09-17 06:40] MED LIST changes: +BEN50 PO; +CEPH-588 PO
[2020-09-17 06:45] VITALS: BP 108/63
--- NOTE | 2020-09-17 06:45 | NUR ---
TO BED AMBULATORY
--- NOTE | 2020-09-17 07:12 | NUR ---
Jeet flores in ED - 09/17/20 at [email or web address] SALAZAR AT BEDSIDE EVALUATING PT
--- NOTE | 2020-09-17 07:12 | NUR ---
Dr. Cabrera is evaluating patient at bedside.
--- NOTE | 2020-09-17 07:13 | NUR ---
34 yo female bib self with c/o front upper right abdominal pain. Patient had her gallbladder removed q3enluo ago. Pt states pain began x5days ago when "she bent over and felt like she pulled something." Pain 8/10 with movement, at rest no pain. "it feels like a knot, or bad cramp." Patient says pain has been intermittent, then last night around 11pm it got worse. She took an unknown pain medication and benadryl, provided no relief. Denies fever, chills, chest pain, difficulty breathing, n/v. No cvs tenderness, denies pain during urination. A&Ox4, respirations even and unlabored. Allergies: cipro PMH: None Surgery: patient had gallbladder removed approx 2 weeks ago and gastric sleeve in 2019.
[2020-09-17] MEDS ORDERED: DIAZ5TAB7 PO (07:37)
[2020-09-17 07:42] VITALS: BP 108/63
--- NOTE | 2020-09-17 07:42 | NUR ---
Patient discharged with v/s stable. Written and verbal after care instructions given and explained. Patient alert, oriented and verbalized understanding of instructions. Ambulatory with steady gait. All questions addressed prior to discharge. ID band removed. Patient advised to follow up with PMD. Rx of diazepam given. Patient educated on indication of medication including possible reaction and side effects. Opportunity to ask questions provided and answered.
== END 2020-09-17 07:42 | disposition home or self-care (01) ==
LOC: MED 06:40
DX: R10.9 Unspecified abdominal pain (principal); Z88.1 Allergy status to other antibiotic agents; Z90.49 Acquired absence of other specified parts of digestive tract; Z79.899 Other long term (current) drug therapy; Z98.84 Bariatric surgery status
CPT/HCPCS: 99283

== ENCOUNTER 2021-02-06 01:04 | Emergency (ER) | payer OTHER ==
[~2021-02-06] VITALS: Ht 165.1 cm; Wt 86.2 kg
[~2021-02-06 01:04] MED LIST changes: +DIAZ5TAB8 PO
[2021-02-06 01:09] VITALS: BP 146/89
--- NOTE | 2021-02-06 01:16 | NUR ---
patient ambulated to bed 12
--- NOTE | 2021-02-06 01:17 | NUR ---
Jeet flores in [facility] - 02/06/21 at 0117 by MARGARITO PT TAKEN TO [facility]
[2021-02-06 02:08] LABS: BASOPHILS # (AUTO) 0.1 K/uL (0.00-0.22); EOSINOPHILS # (AUTO) 0.1 K/uL (0-0.4); EOSINOPHILS % (AUTO) 1.5 % (0.0-4.0); HEMATOCRIT 35.5 % (36-48); HEMOGLOBIN 11.9 g/dL (12.0-16.0); LYMPHOCYTES # (AUTO) 2.5 K/uL (2.5-16.5); LYMPHOCYTES % (AUTO) 46.3 % (20.5-51.1); MEAN CORPUSCULAR HEMOGLOBIN 31 pg (27-31); MEAN CORPUSCULAR HGB CONC 34 g/dL (33-37); MEAN CORPUSCULAR VOLUME 91.1 fL (80-94); MONOCYTES # (AUTO) 0.4 K/uL (0.8-1.0); MONOCYTES % (AUTO) 7.3 % (1.7-9.3); NEUTROPHILS # (AUTO) 2.4 K/uL (1.8-7.7); NEUTROPHILS % (AUTO) 43.9 % (42.2-75.2); PLATELET COUNT (AUTO) 241 K/uL (140-450); RED CELL DISTRIBUTION WIDTH 13.8 % (11.6-13.7); WHITE BLOOD COUNT (AUTO) 5.4 K/uL (4.8-10.8)
--- NOTE | 2021-02-06 02:14 | NUR ---
patient ambulated to the bathroom for urine collection
[2021-02-06] MEDS: NACL 0.9% 1,000 ML IV ONE (02:22)
[2021-02-06 02:27] LABS: ALBUMIN 3.8 g/dL (3.4-5.0); ANION GAP 11.6 (8-16); CARBON DIOXIDE 27.4 mmol/L (21-32); CREATININE 0.7 mg/dL (0.6-1.3); TOTAL BILIRUBIN 0.3 mg/dL (0.0-1.0)
--- NOTE | 2021-02-06 02:41 | NUR ---
patient to ct via w/c
--- NOTE | 2021-02-06 03:19 | NUR ---
patient ambulated to the bathroom with a steady gait
[2021-02-06] MEDS ORDERED: ACETAMINOPHEN EXTRA STRENGTH 500 MG TAB PO ONE (04:50)
--- NOTE | 2021-02-06 05:05 | NUR ---
patient ambulated to the bathroom with a steady gait
[2021-02-06] MEDS: diphenhydrAMINE 50 MG/ML VIAL IVP ONE (05:23)
[2021-02-06] MEDS: DEXAMETHASONE 10 MG/ML VIAL IVP ONE (05:24)
[2021-02-06] MEDS: METOCLOPRAMIDE 10 MG/2 ML INJ VIAL IVP ONE (05:24)
[2021-02-06] MEDS: KETOROLAC 30 MG/ML VIAL IVP ONE (05:25)
[2021-02-06] MEDS ORDERED: ACET-10509 PO (06:03)
--- NOTE | 2021-02-06 06:18 | NUR ---
IV removed, catheter intact and site benign. Applied folded 4x4 gauze and tape to stop bleeding.
--- NOTE | 2021-02-06 06:21 | NUR ---
Patient discharged with v/s stable. Written and verbal after care instructions given and explained. Patient alert, oriented and verbalized understanding of instructions. Ambulatory with steady gait. All questions addressed prior to discharge. ID band removed. Patient advised to follow up with PMD. Rx of Tylenol extra strength tab given. Patient educated on indication of medication including possible reaction and side effects. Opportunity to ask questions provided and answered.
[2021-02-06 06:25] VITALS: BP 109/71
== END 2021-02-06 06:21 | disposition home or self-care (01) ==
LOC: MED 01:04
DX: R51.9 Headache, unspecified (principal); R42 Dizziness and giddiness; Z88.1 Allergy status to other antibiotic agents; Z79.899 Other long term (current) drug therapy; Z90.49 Acquired absence of other specified parts of digestive tract; Z98.84 Bariatric surgery status
CPT/HCPCS: 36415; 70450; 70496; 70498; 80053; 81025; 85025; 96361; 96374; 96375; 99285; J1100; J1200; J1885; J2765; J7030; Q9967

== ENCOUNTER 2021-10-03 14:13 | Emergency (ER) | payer OTHER ==
[~2021-10-03] VITALS: Ht 165.1 cm; Wt 90.7 kg
[~2021-10-03 14:13] MED LIST changes: -ACET-9525 PO; -BEN50 PO; -CEPH-588 PO; +CEPH500C16 PO; -CIPR500T4 PO; -DIAZ5TAB8 PO; +IBUP-1842 PO
[2021-10-03 14:37] VITALS: BP 125/82
[2021-10-03] MEDS ORDERED: KETOROLAC 30 MG/ML VIAL IM ONE (16:15)
[2021-10-03 16:32] LABS: BASOPHILS % (AUTO) 0.9 % (0.0-2.0); EOSINOPHILS # (AUTO) 0.1 K/uL (0-0.4); EOSINOPHILS % (AUTO) 1.8 % (0.0-4.0); HEMATOCRIT 35.3 % (36-48); HEMOGLOBIN 11.4 g/dL (12.0-16.0); LYMPHOCYTES # (AUTO) 2.5 K/uL (2.5-16.5); LYMPHOCYTES % (AUTO) 45.5 % (20.5-51.1); MEAN CORPUSCULAR HEMOGLOBIN 28 pg (27-31); MEAN CORPUSCULAR HGB CONC 32 g/dL (33-37); MONOCYTES # (AUTO) 0.5 K/uL (0.8-1.0); MONOCYTES % (AUTO) 8.6 % (1.7-9.3); NEUTROPHILS # (AUTO) 2.3 K/uL (1.8-7.7); NEUTROPHILS % (AUTO) 43.2 % (42.2-75.2); PLATELET COUNT (AUTO) 254 K/uL (140-450); RED BLOOD CELL COUNT(AUTO) 4.06 MIL/uL (4.20-5.40); RED CELL DISTRIBUTION WIDTH 15.7 % (11.6-13.7); WHITE BLOOD COUNT (AUTO) 5.4 K/uL (4.8-10.8)
[2021-10-03 16:48] LABS: ALBUMIN 3.7 g/dL (3.4-5.0); ANION GAP 11.2 (8-16); CARBON DIOXIDE 27.1 mmol/L (21-32); CREATININE 0.6 mg/dL (0.6-1.3); POTASSIUM 4.3 mmol/L (3.5-5.1); TOTAL BILIRUBIN 0.2 mg/dL (0.0-1.0)
[2021-10-03 17:51] LABS: APPEARANCE,URINE CLEAR (CLEAR); BILIRUBIN,URINE NEGATIVE (NEGATIVE); BLOOD, URINE NEGATIVE (NEGATIVE); COLOR,URINE YELLOW (YELLOW); LEUKOCYTE ESTERASE ,URINE NEGATIVE (NEGATIVE); NITRITE, URINE NEGATIVE (NEGATIVE); UGLUCOSE NEGATIVE (NEGATIVE)
[2021-10-03] MEDS ORDERED: ONDA-188 PO (18:27)
[2021-10-03] MEDS ORDERED: FAMO-90 PO (18:27)
[2021-10-03] MEDS ORDERED: BEN10 PO (18:27)
[2021-10-03 19:14] VITALS: BP 125/82
--- NOTE | 2021-10-03 19:14 | NUR ---
Patient discharged with v/s stable. Written and verbal after care instructions given and explained. Patient alert, oriented and verbalized understanding of instructions. Ambulatory with steady gait. All questions addressed prior to discharge. ID band removed. Patient advised to follow up with PMD. Rx of PEPCID, BENTYL AND ZOFRAN given. Patient educated on indication of medication including possible reaction and side effects. Opportunity to ask questions provided and answered.
== END 2021-10-03 19:14 | disposition home or self-care (01) ==
LOC: MED 14:13
DX: R10.11 Right upper quadrant pain (principal); R03.0 Elevated blood-pressure reading, without diagnosis of hypertension; Z88.1 Allergy status to other antibiotic agents; Z90.49 Acquired absence of other specified parts of digestive tract
CPT/HCPCS: 36415; 80053; 81003; 81025; 83690; 85025; 99283

== ENCOUNTER 2021-12-28 02:22 | Emergency (ER) | payer OTHER ==
[~2021-12-28] VITALS: Ht 165.1 cm; Wt 95.3 kg
[~2021-12-28 02:22] MED LIST changes: +BEN10 PO; +FAMO-90 PO; +ONDA-188 PO
[2021-12-28 02:45] VITALS: BP 126/76
--- NOTE | 2021-12-28 02:48 | NUR ---
TO LOBBY A/W BED AMBULATORY
--- NOTE | 2021-12-28 03:27 | NUR ---
PT CALLED FROM INSIDE INGE AND OUTSIDE, NO RESPONSE
--- NOTE | 2021-12-28 03:30 | NUR ---
Patient lying in bed, A/Ox4, chest rise and fall symmetrical, no s/s of distress, patient on monitor.
--- NOTE | 2021-12-28 04:15 | NUR ---
Patient lying in bed, A/Ox4, chest rise and fall symmetrical, no s/s of distress, patient on monitor.
[2021-12-28] MEDS ORDERED: MORPHINE SULFATE 4 MG/ML SYR IM ONE (04:50)
--- NOTE | 2021-12-28 05:05 | NUR ---
Patient lying in bed, A/Ox4, chest rise and fall symmetrical, no s/s of distress, patient on monitor.
[2021-12-28] MEDS ORDERED: NAPR-54 PO (06:22)
[2021-12-28] MEDS ORDERED: METO-485 PO (06:22)
--- NOTE | 2021-12-28 06:42 | NUR ---
Patient lying in bed, A/Ox4, chest rise and fall symmetrical, no c/o pain or s/s of discomfort Addendum: 12/28/21 at 0642 by [email or web address] Patient lying in bed, A/Ox4, chest rise and fall symmetrical, no s/s of distress, patient on monitor.
--- NOTE | 2021-12-28 07:15 | NUR ---
Change of shift report given to Gilberto SAM. Gilberto SAM verbalized understanding of report, no further questions.
--- NOTE | 2021-12-28 07:22 | NUR ---
pt sleeping, no ac distress, o2 sat 98% ra, sr up times 2, had ct done, awaits for results headache now 04/03
[2021-12-28] MEDS ORDERED: OXYM15SP72 NS (09:12)
[2021-12-28] MEDS ORDERED: FLONAS NS (09:12)
[2021-12-28 09:28] VITALS: BP 115/76
--- NOTE | 2021-12-28 09:29 | NUR ---
Patient discharged with v/s stable. Written and verbal after care instructions given and explained. Patient verbalized understanding. Ambulatory with steady gait. All questions addressed prior to discharge. Advised to follow up with PMD. headache 03/03
== END 2021-12-28 09:29 | disposition home or self-care (01) ==
LOC: MED 02:22
DX: J32.9 Chronic sinusitis, unspecified (principal); Z88.1 Allergy status to other antibiotic agents; Z79.899 Other long term (current) drug therapy; Z98.84 Bariatric surgery status
CPT/HCPCS: 70450; 81025; 96372; 99285; J2270

== ENCOUNTER 2022-05-13 15:11 | Emergency (ER) | payer OTHER ==
[~2022-05-13] VITALS: Ht 165.1 cm; Wt 99.8 kg
[~2022-05-13 15:11] MED LIST changes: +FLONAS NS; +METO-485 PO; +NAPR-54 PO; +OXYM15SP72 NS
[2022-05-13 16:12] VITALS: BP 116/77
[2022-05-13] MEDS ORDERED: GABA100C PO (17:27)
[2022-05-13] MEDS ORDERED: ACET-10509 PO (17:27)
[2022-05-13 17:32] VITALS: BP 116/77
--- NOTE | 2022-05-13 17:32 | NUR ---
Patient discharged with v/s stable. Written and verbal after care instructions given and explained. Patient alert, oriented and verbalized understanding of instructions. Ambulatory with steady gait. All questions addressed prior to discharge. ID band removed. Patient advised to follow up with PMD. Rx of gabapentin, tylenol (sent) given. Patient educated on indication of medication including possible reaction and side effects. Opportunity to ask questions provided and answered.
== END 2022-05-13 17:32 | disposition home or self-care (01) ==
LOC: MED 15:11
DX: R20.2 Paresthesia of skin (principal); Z90.49 Acquired absence of other specified parts of digestive tract; Z98.890 Other specified postprocedural states; Z79.899 Other long term (current) drug therapy; Z79.1 Long term (current) use of non-steroidal anti-inflammatories (NSAID); Z79.2 Long term (current) use of antibiotics; Z88.1 Allergy status to other antibiotic agents
CPT/HCPCS: 93005; 99283

== ENCOUNTER 2022-09-19 10:17 | Emergency (ER) | payer OTHER ==
[~2022-09-19] VITALS: Ht 172.7 cm; Wt 83.9 kg
[~2022-09-19 10:17] MED LIST changes: +ACET-10509 PO; +GABA100C PO
[2022-09-19 10:28] VITALS: BP 128/99; PULSE 72; RESP 17; TEMP 97.6; O2SAT 98
[2022-09-19] MEDS ORDERED: DEXAMETHASONE 10 MG/ML VIAL IM ONE (10:45)
--- NOTE | 2022-09-19 10:54 | NUR ---
Patient discharged with v/s stable. Written and verbal after care instructions given and explained. Patient verbalized understanding. Ambulatory with steady gait. All questions addressed prior to discharge. Advised to follow up with PMD.
== END 2022-09-19 10:54 | disposition home or self-care (01) ==
LOC: MED 10:17
DX: J02.9 Acute pharyngitis, unspecified (principal); Z88.8 Allergy status to other drugs, medicaments and biological substances; Z79.899 Other long term (current) drug therapy
CPT/HCPCS: 96372; 99283; J1100

== ENCOUNTER 2022-10-19 21:17 | Emergency (ER) | payer OTHER | END 2022-10-19 22:25 | disposition left against medical advice (07) | LOC: MED 21:17 | DX: M79.609 Pain in unspecified limb (principal); Z53.21 Procedure and treatment not carried out due to patient leaving prior to being seen by health care provider ==

== ENCOUNTER 2022-11-30 21:51 | Emergency (ER) | payer OTHER ==
[~2022-11-30] VITALS: Ht 165.1 cm; Wt 89.8 kg
[2022-11-30 22:10] VITALS: BP 131/72; PULSE 83; RESP 18; TEMP 97.4; O2SAT 99
[2022-11-30 23:00] VITALS: O2SAT 99
== END 2022-11-30 23:50 | disposition home or self-care (01) ==
LOC: MED 21:51
DX: R20.0 Anesthesia of skin (principal); F41.0 Panic disorder [episodic paroxysmal anxiety]; R06.4 Hyperventilation; Z79.899 Other long term (current) drug therapy
CPT/HCPCS: 99281; 99283